=== PATIENT | male | born 1965 | race Caucasian/White ===

== ENCOUNTER → 2022-08-12 14:04 | Outpatient (BNVA) | payer MEDICAID, SELFPAY | PROVIDERS: PCP Family Medicine; Referring Provider Family Medicine; Visit Provider Orthopaedic Surgery | DX: I10 Essential (primary) hypertension (principal); M25.561 Pain in right knee | CPT/HCPCS: 36415; 73560; 73565; 80053; 80061; 81003; 85025 ==

== ENCOUNTER → 2022-09-08 09:40 | Outpatient (BNVA) | payer MEDICAID, SELFPAY | PROVIDERS: PCP Family Medicine; Visit Provider Anesthesiology Pain Medicine | DX: M54.2 Cervicalgia (principal); M25.551 Pain in right hip | CPT/HCPCS: 72050; 73502 ==

== ENCOUNTER 2022-10-06 16:45 | Outpatient (CLI) | payer MEDICAID, SELFPAY ==
--- NOTE | 2022-10-06 17:00 | CT_ITS ---
WS: [id number] LDCT LUNG CANCER SCREENING HISTORY: lung CA screening TECHNIQUE: Axial imaging performed from the apices to 1 cm below the costophrenic angles. Coronal and sagittal reformats are submitted with axial MIP series. All CT scans at [facility] use at least one of these dose optimization techniques: automated exposure control; mA and/or kV adjustment per patient size (includes targeted exams where dose is matched to clinical indication); or iterativ e reconstruction. DLP: 113.40 mGy.cm DIvol: Mean CTDIvol: 2.30 (mGy) COMPARISON: None available. Diagnostic quality: Satisfactory Lungs: No pulmonary mass or nodule. No endobronchial lesions. Very thin scarring or atelectasis right lower lobe. Mild chronic emphysema. Heart: Normal size heart with no pericardial effusion.. Other findings: No adenopathy. Mild atherosclerosis aorta. Mild bilateral gynecomastia. Small hiatal hernia. No adrenal mass. IMPRESSION: CT/CT lung screening [id number] LUNG-RADS: 1-Negative FOLLOW UP: 12 Month: Continue annual screening with LDCT OTHER FINDINGS (S MODIFIER): None.
== END 2022-10-06 16:46 | disposition home or self-care (01) ==
LOC: RAD 16:47
PROVIDERS: PCP Family Medicine; Visit Provider Family Medicine
DX: F17.219 Nicotine dependence, cigarettes, with unspecified nicotine-induced disorders; Z12.2 Encounter for screening for malignant neoplasm of respiratory organs
CPT/HCPCS: 71271

== ENCOUNTER 2022-11-03 12:49 | Outpatient (CLI) | payer MEDICAID, SELFPAY ==
--- NOTE | 2022-11-03 13:00 | MR_ITS ---
WS: [id number] MRI CERVICAL SPINE NONCONTRAST TECHNIQUE: Sagittal T1, T2 and STIR imaging. Axial T2, gradient, and fiesta imaging. 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 COMPARISON: None. FINDINGS: Straightening of the normal cervical lordosis. Mild spondylitic changes. Slight retrolisthesis C5 on C6. C2-C3: Mild facet arthropathy. Spinal canal and foramen are patent. C3-C4: Tiny central protrusion. Slight contact of the cervical cord. Mild facet arthropathy. Mild to moderate bilateral bony foraminal narrowing. C4-C5: Mild disc bulge with a tiny central protrusion. Mild facet arthropathy. Mild to moderate bilat eral foraminal narrowing LEFT greater than RIGHT. C5-C6: Slight retrolisthesis. Disc osteophyte complex with mild central canal stenosis. Moderate LEFT greater than RIGHT bony foraminal narrowing. Moderate facet arthropathy. C6-C7: Disc osteophyte complex with mild central canal stenosis. Slight effacement of the ventral the jerry sac. Moderate to severe RIGHT and mild LEFT bony foraminal narrowing. Moderate facet arthropathy. Uncovertebral joint hypertrophy. C7-T1: Slight anterolisthesis C7 on T1. Mild bilateral bony foraminal narrowing. Spinal canal is acharya nt. Visualized brain stem structures: Normal. Prevertebral soft tissues: Normal. IMPRESSION: 1. Straightening of the normal cervical doses. Mild spondylitic changes. Slight retrolisthesis C5 on C6. 2. Mild central canal stenosis C5-C6 and C6-C7 due to disc osteophyte complexes. 3. Tiny central protrusions C3-C4 and C4-C5. 4. Multilevel moderate bony foraminal narrowing worse at bilateral C3-4, bilateral C4-5, bilateral C 5-C6 and RIGHT C6-7. 5. Moderate facet arthropathy C3-C4 C4-C5 and C5-C6.
== END 2022-11-03 12:50 | disposition home or self-care (01) ==
LOC: RAD 12:52
PROVIDERS: PCP Family Medicine; Visit Provider Anesthesiology Pain Medicine
DX: M47.812 Spondylosis without myelopathy or radiculopathy, cervical region (principal); M48.02 Spinal stenosis, cervical region; M50.21 Other cervical disc displacement, high cervical region; M50.221 Other cervical disc displacement at C4-C5 level
CPT/HCPCS: 72141

== ENCOUNTER → 2022-11-19 11:38 | Outpatient (BNVA) | payer MEDICAID, SELFPAY | PROVIDERS: PCP Family Medicine; Visit Provider Anesthesiology Pain Medicine | DX: I10 Essential (primary) hypertension (principal) | CPT/HCPCS: 36415 ==

== ENCOUNTER → 2022-12-01 15:46 | Outpatient (BNVA) | payer MEDICAID, SELFPAY | PROVIDERS: PCP Family Medicine; Referring Provider Family Medicine; Visit Provider Internal Medicine Cardiovascular Disease | DX: R06.02 Shortness of breath (principal); R07.9 Chest pain, unspecified; I50.9 Heart failure, unspecified | CPT/HCPCS: 93005 ==

== ENCOUNTER 2022-12-10 13:52 | Outpatient (CLI) | payer MEDICAID, SELFPAY ==
--- NOTE | 2022-12-10 13:45 | USCV_ITS ---
Agus Kenan Age: 57 Gender: M : 1965 Exam Date: 12/10/2022 14:09 Ordering Phys: Pradeep Gonzalez MD ([email or web address]) Technologist: [place] Exam Location: [facility] Indication: SOB BP: / HR: 118 Rhythm: Sinus Technical Quality: Poor secondary to COPD MEASUREMENTS (Male / Female) Normal Values 2D ECHO LV Chamber Size 3.2 cm RV Chamber Size 2.4 cm LVOT Diameter 2.0 cm LV Ejection Fraction MOD 2C 53.9 % LV Ejection Fraction 2C AL 59.3 % LA Diameter 3.1 cm LA Width 2.4 cm LA Height 4.2 cm RA Width 2.8 cm RA Height 3.4 cm IVC Diameter 1.8 cm M-MODE Aortic Annulus Diameter 3.5 cm LA Ao Ratio MM 1.1 DOPPLER AV Peak Velocity 131.0 cm/s LVOT Peak Velocity 123.0 cm/s AV Area Cont Eq vti 3.7 cm squared AV Area Cont Eq pk 3.1 cm squared MV Area PHT 2.5 cm squared Mitral E to A Ratio 0.8 MV E' Velocity 42.0 cm/s Mitral E to MV E' Ratio 7.2 Mitral E to LV E' Lateral Ratio 6.8 Mitral E to LV E' Septal Ratio 7.8 TR Peak Velocity 144.3 cm/s TR Peak Gradient 8.3 mmHg TR Mean Velocity 119.7 cm/s TR Mean Gradient 5.9 mmHg TR Velocity Time Integral 34.9 cm TV Peak E Velocity 67.0 cm/s Right Atrial Pressure 3.0 mmHg Pulmonary Artery Systolic Pressu 11.3 mmHg RV Acceleration Time 0.1 s RV Ejection Time 0.3 s RV AcT/ET 0.5 FINDINGS Left Ventricle Normal left ventricular size and systolic function, EF 65 %. No regional wall motion abnormalities. Right Ventricle The right ventricle is normal in size and function. Right Atrium The right atrium is normal in size. Left Atrium The left atrium is normal in size. Mitral Valve No gross abnormalities noted Aortic Valve No gross abnormalities noted Tricuspid Valve No gross abnormalities noted Pulmonic Valve No gross abnormalities noted Pericardium Normal pericardium without effusion. Aorta Normal ascending aorta dimension. IVC Normal inferior vena cava. CONCLUSIONS Normal left ventricular size and systolic function, EF 65 %. No regional wall motion abnormalities. Normal cardiac chamber sizes. No valvular abnormalities There is no pericardial effusion. There are no intracardiac masses. Technically somewhat limited study because of poor parasternal window Dr Pradeep Gonzalez MD FACC (Electronically Signed) Final Date: 11 December 2022 12:40 S
[2022-12-10 15:29] LABS: Anion Gap 15.8 (5-19); Blood Urea Nitrogen 15 mg/dL (6-20); Carbon Dioxide 30 mmol/L (22-29); Chloride 99 mmol/L (98-107); Glomerular Filtration Rate 87.3 mL/min (90-130); Glucose 108 mg/dL (65-115); NT Pro B Type Natriuretic Pept 36 pg/mL (0-125); Osmolality Calculated 293 mOsm/kg (285-295); Potassium 3.8 mmol/L (3.5-5.1); Sodium 141 mmol/L (136-145)
== END 2022-12-10 13:53 | disposition home or self-care (01) ==
PROVIDERS: PCP Family Medicine; Visit Provider Internal Medicine Cardiovascular Disease
DX: R06.02 Shortness of breath (principal); R06.09 Other forms of dyspnea
CPT/HCPCS: 80048; 83880; 93306

== ENCOUNTER → 2023-03-30 16:06 | Outpatient (BNVA) | payer MEDICAID, SELFPAY | PROVIDERS: PCP Family Medicine; Referring Provider Family Medicine; Visit Provider Internal Medicine Pulmonary Disease | DX: R06.02 Shortness of breath (principal) | CPT/HCPCS: 71046 ==

== ENCOUNTER 2023-04-02 08:38 | Outpatient (CLI) | payer MEDICAID, SELFPAY ==
--- NOTE | 2023-04-02 | ECG_ITS ---
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 Interpretive Statements NAME OF STUDY: LEXISCAN SESTAMIBI STRESS TEST INDICATION: [Dyspnea on Exertion] Procedure: At the baseline, the blood pressure was 123/91 mmHg with a heart rate of 96 bpm. The electrocardiogram showed normal sinus rhythm, normal axis with normal ST and T's. The Lexiscan was infused over a period of 20 seconds. A total of 0.4 mg of Lexiscan was infused. The stress phase was continued for a total of 5 minutes. Heart rate was at the end of stress phase was 93 bpm and a blood pressure of 148/93 mmHg. The EKG at the peak infusion revealed normal sinus rhythm with no significant ST-T wave changes. Sestamibi was injected 20 seconds after the Lexiscan infusion. Blood pressure at the end of recovery phase was 155/90 mmHg with a heart rate of 90 bpm. Conclusion: 1. Normal EKG response to Lexiscan infusion 2. No Lexiscan induced chest pain or cardiac arrhythmia. 3. Normal blood pressure and heart rate response. 4. Sestamibi/sestamibi perfusion scan pending; see separate report. Electronically Signed On 04-16-2023 11:53:32 CLASS A [employer]AL [employer]IVERS by Lamberto Chacon M.D. [email or web address]
[2023-04-02 08:47] VITALS: BMI 33.1
--- NOTE | 2023-04-02 08:50 | NMCV_ITS ---
NM cony perf SPECT r/s* [id number] AgusKenan Age: 58 Gender: M : 1965 Exam Date: 04/02/2023 10:17 Ordering Phys: Izabel Georges Technologist: ELYSIA Cobian Exam Location: [facility] Indications: HYPERTENSION, ATHEROSCLEROTIC HEART DISEASE STRESS TEST Please see separate stress test report in [facility] for full findings IMAGE PROTOCOL Rest/Stress 1 Lexiscan Day Radiopharmaceutical Dose (mCi) Administration Site Administered by Rest: Tc-99m 11.0 IV ELYSIA Cobian Sestamibi Stress:Tc-99m 32.5 IV ELYSIA Matthews Sestamibi Rest: 02-Apr-2023 60 Discovery 630 Stress: 02-Apr-2023 30 Discovery 630 0.4mg Lexiscan. Images obtained in supine and prone position. SPECT RESULTS Technical Quality: Excellent Raw Data Analysis: Normal Image Corrections: No attenuation or motion correction applied Summed Stress Score: 2 Summed Rest Score: 5 Summed Difference Score: 0 PERFUSION FINDINGS There is reduced radiotracer uptake on resting images and apical septal and mid septal torres. This improves with stress imaging. Consistent with attenuation artifact. Small sized fixed perfusion defect is seen in inferior wall. This is consistent with small area of prior infarct with no significant ischemia in RCA territory. FUNCTIONAL RESULTS (calculated via Gated SPECT) Stress Image LV EF (%): 62 Stress EDV (mL):111 TID: 0.94 Stress ESV (mL):42 FUNCTIONAL FINDINGS: There is normal left ventricular systolic function. IMPRESSIONS 1. Attenuation artifact is seen in LAD territory. 2. Small sized area of prior infarct is seen in RCA territory. 3. LV systolic function is normal. Lamberto Chacon MD (Electronically Signed) Final Date: 08 April 2023 08:55 S
[2023-04-02] MEDS: regadenoson 0.4 Mg/5 ml Syringe IVP (10:53)
[2023-04-02 11:44] VITALS: BP 119/86; PULSE 91
== END 2023-04-02 08:39 | disposition home or self-care (01) ==
LOC: CDL 08:39
PROVIDERS: PCP Family Medicine; Visit Provider Nurse Practitioner Family
DX: I25.10 Atherosclerotic heart disease of native coronary artery without angina pectoris (principal); I10 Essential (primary) hypertension; I25.2 Old myocardial infarction
CPT/HCPCS: 36415; 78452; 93017; 96374; A9500; J2785

== ENCOUNTER 2023-04-21 09:54 | Outpatient (CLI) | payer MEDICAID, SELFPAY ==
[2023-04-21 10:17] VITALS: PULSE 96; RESP 18; O2SAT 97
[2023-04-21] MEDS: albuterol 2.5 mg/3 mL Neb INHALATION (10:17)
[2023-04-21 10:21] VITALS: PULSE 93
== END 2023-04-21 09:55 | disposition home or self-care (01) ==
LOC: RT 09:55
PROVIDERS: PCP Family Medicine; Visit Provider Internal Medicine Pulmonary Disease
DX: R06.02 Shortness of breath (principal)
CPT/HCPCS: 94060; 94618; 94726; 94729; J7613

== ENCOUNTER 2025-01-15 14:13 | Outpatient (CLI) | payer MEDICARE, SELFPAY | END 2025-01-15 14:14 | disposition home or self-care (01) | DX: I10 Essential (primary) hypertension (principal) | CPT/HCPCS: 36415; 85025 ==

== ENCOUNTER 2025-01-25 15:13 | Outpatient (CLI) | payer MEDICARE, SELFPAY ==
--- NOTE | 2025-01-25 15:21 | XRR_ITS ---
PROCEDURE INFORMATION: Exam: XR Cervical Spine Exam date and time: 01/25/2025 4:30 PM Age: 59 years old Clinical indication: Neck pain for 5 days, no known injury TECHNIQUE: Imaging protocol: Radiologic exam of the cervical spine. Views: 2 or 3 views. COMPARISON: MR cervical spin wo con* [id number] 11/03/2022 1:13 PM FINDINGS: Bones/joints: There is normal alignment of the cervical vertebral column. No subluxations are identified. There is disc space narrowing with osteophyte formation most pronounced at C5-C6 and C6-C7 and to a lesser degree C3-C4 and C4-C5. There are degenerative changes involving the facets. Soft tissues: Unremarkable. XR/XR cervical spine 3V* [id number] IMPRESSION: 1. Spondylosis.
[2025-01-25 16:44] LABS: Hematocrit 45.4 % (37-53); Hemoglobin 16.40 g/dL (11.27-16.99); Mean Corpuscular HGB Conc 36.1 g/dL (30-55); Mean Corpuscular Hemoglobin 32.0 pg (27-33); Mean Corpuscular Volume 88.7 fl (82-101); Nucleated Red Blood Cells % 0 %; Platelet Count 321 10^3/cmm (157-399); Red Blood Count 5.12 10^6/uL (3.85-5.65); White Blood Count 13.97 10^3/uL (3.29-11.43)
[2025-01-25 18:09] LABS: Alanine Aminotransferase 20 U/L (0-41); Albumin Level 4.5 g/dL (3.5-5.2); Alkaline Phosphatase 83 U/L (40-130); Anion Gap 17.0 (5-19); Aspartate Amino Transferase 23 U/L (0-40); Blood Urea Nitrogen 16 mg/dL (6-20); Calcium 10.0 mg/dL (8.5-10.5); Carbon Dioxide 29 mmol/L (22-29); Chloride 98 mmol/L (98-107); Cholesterol 145 mg/dL (0-200); Globulin 3.8 g/dL (1.3-4.6); Glucose 121 mg/dL (65-115); HDL Cholesterol 29 mg/dL (60-100); Osmolality Calculated 292 mOsm/kg (285-295); Potassium 4.0 mmol/L (3.5-5.1); Sodium 140 mmol/L (136-145); Total Protein 8.3 g/dL (6.6-8.7); Triglycerides 219 mg/dL (0-150)
[2025-01-25 18:19] LABS: Estmated Average Glucose 105; Hemoglobin A1C 5.3 % (4.0-6.0)
== END 2025-01-25 15:14 | disposition home or self-care (01) ==
DX: E11.9 Type 2 diabetes mellitus without complications (principal); I10 Essential (primary) hypertension; M54.2 Cervicalgia; M47.812 Spondylosis without myelopathy or radiculopathy, cervical region
CPT/HCPCS: 72040; 80053; 80061; 83036; 85025; J1885